=== PATIENT | female | born 1985 | race African-American/Black ===

== ENCOUNTER 2019-01-11 17:02 | Emergency (ER) | payer MEDICAID, OTHER ==
[~2019-01-11] VITALS: Ht 165.1 cm; Wt 73.0 kg
[2019-01-11] MEDS ORDERED: SODIUM CHLORIDE 0.9% 1,000 ML IV ONE (23:27)
[2019-01-11] MEDS ORDERED: ONDANSETRON 4MG ODT PO ONE (23:30)
[2019-01-12 00:21] LABS: BASOPHILS % 0.7 % (0.0-2.0); EOSINOPHILS % 0.7 % (0.0-5.0); HEMATOCRIT. 38.8 % (36.0-48.0); HEMOGLOBIN. 13.7 g/dL (12.0-16.0); LYMPHOCYTES % 33.9 % (20.0-50.0); MEAN CORPUSCULAR HEMOGLOBIN 34.5 pg (28.0-32.0); MEAN CORPUSCULAR VOLUME 97.5 fL (81.0-99.0); MONOCYTES % 10.6 % (2.0-8.0); NEUTROPHILS % 54.1 % (40.0-76.0); PLATELET 295 x1000/uL (130-400); RED BLOOD CELL COUNT 3.98 mill/uL (4.2-5.4); RED CELL DISTRIBUTION WIDTH 11.7 % (11.6-14.6)
[2019-01-12 00:25] LABS: CHLORIDE 103 mEq/L (98-107)
[2019-01-12 00:53] LABS: B-HCG QUANTITATIVE 122637 mIU/mL (<3)
[2019-01-12 01:52] LABS: CLARITY URINE CLOUDY (CLEAR); COLOR URINE DARK YELLOW (YELLOW); KETONES URINE 3+ (NEGATIVE); LEUKOCYTE ESTERASE URINE NEGATIVE (NEGATIVE); NITRITE URINE NEGATIVE (NEGATIVE); OCCULT BLOOD URINE NEGATIVE (NEGATIVE); PH URINE 5.5 (4.5-8.0); PROTEIN URINE 1+ (NEGATIVE); SPECIFIC GRAVITY URINE 1.038 (1.005-1.030)
[2019-01-12 03:27] VITALS: BP 115/68
== END 2019-01-12 03:29 | disposition home or self-care (01) ==
LOC: ER 17:02
DX: O21.9 Vomiting of pregnancy, unspecified (principal); Z3A.01 Less than 8 weeks gestation of pregnancy
CPT/HCPCS: 36415; 76801; 80053; 81003; 84702; 85025; 86850; 86900; 86901; 96360; 99284; J7030; Q0162

== ENCOUNTER 2021-07-16 22:56 | Emergency (ER) | payer MEDICAID ==
[~2021-07-16] VITALS: Ht 160 cm; Wt 64.0 kg
[2021-07-16] MEDS ORDERED: ACETAMINOPHEN 325MG TABLET PO STA (23:19)
[2021-07-17 00:19] LABS: EOSINOPHILS % 1.6 % (0.0-5.0); HEMATOCRIT. 34.7 % (36.0-48.0); HEMOGLOBIN. 12.2 g/dL (12.0-16.0); LYMPHOCYTES % 42.1 % (20.0-50.0); MEAN CORPUSCULAR VOLUME 99.8 fL (81.0-99.0); MEAN PLATELET VOLUME 7.5 fl (7.4-10.4); MONOCYTES % 6.9 % (2.0-8.0); NEUTROPHILS % 48.4 % (40.0-76.0); PLATELET 339 x1000/uL (130-400); RED BLOOD CELL COUNT 3.48 mill/uL (4.2-5.4); RED CELL DISTRIBUTION WIDTH 12.6 % (11.6-14.6)
[2021-07-17 00:28] LABS: CHLORIDE 109 mEq/L (98-107)
[2021-07-17 00:39] LABS: B-HCG QUANTITATIVE 787 mIU/mL (<3)
[2021-07-17 00:48] LABS: CLARITY URINE CLOUDY (CLEAR); COLOR URINE DARK YELLOW (YELLOW); KETONES URINE TRACE (NEGATIVE); LEUKOCYTE ESTERASE URINE TRACE (NEGATIVE); NITRITE URINE NEGATIVE (NEGATIVE); OCCULT BLOOD URINE 3+ (NEGATIVE); PROTEIN URINE 4+ (NEGATIVE); SPECIFIC GRAVITY URINE 1.043 (1.005-1.030); UROBILINOGEN URINE 0.2 E.U./dL (0.2-1.0)
[2021-07-17] MEDS ORDERED: CEPHALEXIN 250MG CAPSULE PO SCH (01:45)
[2021-07-17 02:11] VITALS: BP 111/42
== END 2021-07-17 02:27 | disposition home or self-care (01) ==
LOC: ER 22:56
DX: O03.4 Incomplete spontaneous abortion without complication (principal); Z98.890 Other specified postprocedural states; Z3A.01 Less than 8 weeks gestation of pregnancy
CPT/HCPCS: 36415; 76801; 80053; 81003; 81025; 84702; 85025; 86850; 86900; 99284

== ENCOUNTER 2021-07-17 03:46 | Emergency (ER) | payer MEDICAID, OTHER ==
[~2021-07-17] VITALS: Ht 165.1 cm; Wt 73.0 kg
[2021-07-17 03:47] VITALS: BP 110/70
== END 2021-07-17 03:54 | disposition home or self-care (01) ==
LOC: ER 03:46
DX: O03.4 Incomplete spontaneous abortion without complication (principal)
CPT/HCPCS: 99283

== ENCOUNTER 2021-11-16 15:59 | Emergency (ER) | payer MEDICAID, OTHER ==
[~2021-11-16] VITALS: Ht 165.1 cm; Wt 79.0 kg
[2021-11-16] MEDS ORDERED: ONDANSETRON 4MG ODT PO ONE (16:30)
[2021-11-16] MEDS ORDERED: ONDANSETRON HCL 4MG/2ML INJ IV ONE (18:45)
[2021-11-16] MEDS ORDERED: DEXAMETHASONE 4MG/ML 1ML VIAL IV ONE (18:45)
[2021-11-16] MEDS ORDERED: SODIUM CHLORIDE 0.9% 1,000 ML IV ONE (18:45)
[2021-11-16 19:41] LABS: CHLORIDE 100 mEq/L (98-107)
[2021-11-16] MEDS ORDERED: P20 MT ×2 (20:36)
[2021-11-16 20:40] VITALS: BP 137/83
== END 2021-11-16 20:59 | disposition home or self-care (01) ==
LOC: ER 15:59
DX: O21.0 Mild hyperemesis gravidarum (principal); Z3A.01 Less than 8 weeks gestation of pregnancy
CPT/HCPCS: 36415; 80048; 96361; 96374; 99283; J1100; J2405; J7030; Q0162